=== PATIENT | male | born 1990 | race Two or more races ===

== ENCOUNTER 2019-10-06 14:44 | Emergency (ER) | payer SELFPAY ==
[~2019-10-06] VITALS: Ht 180.3 cm; Wt 80.0 kg
[2019-10-06 14:44] VITALS: BP 126/76
[~2019-10-06 14:44] MED LIST: ALBU8HFA PO; BENZ-16 PO; BUSP5TAB3 PO; IBUP-1051 PO; LORA0.5T PO; PRED50TA PO
--- NOTE | 2019-10-06 15:48 | NUR ---
Patient left without being seen, Patient was left in triage 1 until bed opened in room 17. Will call patient to find out if patient still needs to be seen.
--- NOTE | 2019-10-06 15:57 | NUR ---
Called patient and left message to return, if he needs to still be seen.
== END 2019-10-06 15:59 | disposition left against medical advice (07) ==
LOC: ER 14:45
DX: R05 Cough (principal); Z53.21 Procedure and treatment not carried out due to patient leaving prior to being seen by health care provider

== ENCOUNTER 2019-10-08 02:17 | Emergency (ER) | payer SELFPAY ==
[~2019-10-08] VITALS: Ht 180.3 cm; Wt 80.0 kg
[2019-10-08 03:19] VITALS: BP 138/87
--- NOTE | 2019-10-08 04:06 | NUR ---
Patient is being very resistive to treatment and work up. Patient initially wanted to refuse the covid swab because he couldn't do it himself. Educated patient on the need for oxygen and monitoring but he keeps ripping off the pulse ox and the oxygen despite O2 sat last reading at 89% on RA. Patient refused an IV and lab work stating "why can't we just let him leave and call him with the lab results". Informed MD of patient's behavior, will await results on covid swab.
--- NOTE | 2019-10-08 04:13 | NUR ---
Patient was seen by staff attempting to leave the ER. Patient was educated on need to stay and receive a full work up and care. Patient declined and insisted on leaving the ER anyways. MD aware. Patient refused to sign AMA paperwork
== END 2019-10-08 04:21 | disposition left against medical advice (07) ==
LOC: ER 02:18
DX: F19.10 Other psychoactive substance abuse, uncomplicated (principal); R05 Cough; R06.02 Shortness of breath; R53.83 Other fatigue; F41.9 Anxiety disorder, unspecified; F12.90 Cannabis use, unspecified, uncomplicated; F15.90 Other stimulant use, unspecified, uncomplicated; F11.90 Opioid use, unspecified, uncomplicated; F14.90 Cocaine use, unspecified, uncomplicated; Z56.0 Unemployment, unspecified; Z72.89 Other problems related to lifestyle; Z88.8 Allergy status to other drugs, medicaments and biological substances; Z79.899 Other long term (current) drug therapy
CPT/HCPCS: 71045; 87635; 99284; C9803

== ENCOUNTER 2020-03-05 05:57 | Emergency (ER) | payer MEDICAID ==
[~2020-03-05] VITALS: Ht 182.9 cm; Wt 87.3 kg
[2020-03-05 06:04] VITALS: BP 135/85
[2020-03-05] MEDS ORDERED: normal saline 1000ML IV soln IV ONE (06:50)
[2020-03-05] MEDS ORDERED: ipratropium/albuterol 3ml nebule NEB ONE (06:50)
[2020-03-05] MEDS ORDERED: dexamethasone sod phosphate 10mg/ml inj IV STA (06:54)
[2020-03-05 08:03] LABS: BASOPHILS # (AUTO) 0.1 X10'3 (0-0.2); BASOPHILS % (AUTO) 0.8 % (0-1); EOSINOPHILS # (AUTO) 1.3 X10'3 (0-0.9); EOSINOPHILS % (AUTO) 11.9 % (0-6); HEMATOCRIT 48.6 % (42.0-52.0); HEMOGLOBIN 16.5 g/dl (14.0-17.9); LYMPHOCYTES # (AUTO) 2.1 X10'3 (1.1-4.8); LYMPHOCYTES % (AUTO) 19.7 % (21-51); MEAN CORPUSCULAR HEMOGLOBIN 30.4 PG (27.0-31.0); MEAN CORPUSCULAR VOLUME 89.4 FL (78-98); MEAN PLATELET VOLUME 10.1 FL (7.4-10.4); MONOCYTES # (AUTO) 0.7 X10'3 (0-0.9); MONOCYTES % (AUTO) 6.7 % (2-12); NEUTROPHILS # (AUTO) 6.6 X10'3 (1.8-7.7); NEUTROPHILS % (AUTO) 60.9 % (42-75); PLATELET COUNT 214 X10'3 (140-440); RED BLOOD COUNT 5.44 X10'6 (4.70-6.10); RED CELL DISTRIBUTION WIDTH 13.8 % (11.5-14.5); WHITE BLOOD COUNT 10.9 X10'3 (4.5-11.0)
[2020-03-05 08:14] LABS: ALANINE AMINOTRANSFERASE 27 U/L (12-78); ALBUMIN 3.3 G/DL (3.4-5.0); ALBUMIN/GLOBULIN RATIO 0.7 (1.1-1.5); ALKALINE PHOSPHATASE 77 IU/L (46-116); ANION GAP 12 (8-16); ASPARTATE AMINO TRANSFERASE 22 U/L (10-37); BILIRUBIN,TOTAL 0.3 MG/DL (0.1-1.0); BLOOD UREA NITROGEN 10 MG/DL (7-18); BUN/CREATININE RATIO 10.1 (5.4-32.0); CHLORIDE 105 MMOL/L (99-107); CREATININE 0.99 MG/DL (0.60-1.10); GLUCOSE 95 MG/DL (70-104); POTASSIUM 3.5 MMOL/L (3.5-5.1); SODIUM 141 MMOL/L (135-145); TOTAL CARBON DIOXIDE 23.7 MMOL/L (24-32); TOTAL PROTEIN 7.8 G/DL (6.4-8.2); eGFR 90 ML/MIN
[2020-03-05 08:22] LABS: D-DIMER 0.32 MG/L FEU (0-0.50)
[2020-03-05 08:33] LABS: C-REACTIVE PROTEIN 4.82 MG/DL (0.0-0.5); LACTATE DEHYDROGENASE 159 U/L (85-227)
[2020-03-05 08:35] LABS: FERRITIN 38 NG/ML (26-388)
[2020-03-05] MEDS ORDERED: ALBU8.5H8 INH (08:42)
[2020-03-05] MEDS ORDERED: AZIT-72 PO (08:42)
[2020-03-05] MEDS ORDERED: HYDR-3965 PO (08:42)
[2020-03-05] MEDS ORDERED: PRED20TA PO (08:42)
--- NOTE | 2020-03-05 09:20 | NUR ---
ATTEMPTED TOCALL PATIENT AND HE SHOWED UP IN THE ER WITHOUT A FACE MASK. DISCHARGE INSTRUCTIONS GIVEN TO PATIENT ON AMBULANCE BAY AND DEPARTED AMBULATORY, IN STABLE CONDITION.
== END 2020-03-05 09:16 | disposition home or self-care (01) ==
LOC: ER 05:57
DX: J96.01 Acute respiratory failure with hypoxia (principal); J06.9 Acute upper respiratory infection, unspecified; Z20.828 Contact with and (suspected) exposure to other viral communicable diseases
CPT/HCPCS: 36415; 71045; 80053; 82728; 83605; 83615; 83880; 84145; 84484; 85025; 85379; 86140; 87040; 87635; 94640; 96374; 99284; J1100; J7030; 94760